=== PATIENT | male | born 1955 | race Caucasian/White ===

== ENCOUNTER → 2021-03-21 | Outpatient (CLI) | payer OTHER | LOC: M.RAD 07:49 → M.WC 07:49 | PROVIDERS: ATTEND Surgery | DX: E11.621 Type 2 diabetes mellitus with foot ulcer (principal); L97.523 Non-pressure chronic ulcer of other part of left foot with necrosis of muscle; E11.40 Type 2 diabetes mellitus with diabetic neuropathy, unspecified; I10 Essential (primary) hypertension; F17.200 Nicotine dependence, unspecified, uncomplicated; Z71.6 Tobacco abuse counseling; Z79.82 Long term (current) use of aspirin; Z79.84 Long term (current) use of oral hypoglycemic drugs ==

== ENCOUNTER 2021-03-31 08:56 | Emergency (ER) | payer OTHER ==
[~2021-03-31] VITALS: Ht 180.3 cm; Wt 104.3 kg
[2021-03-31] MEDS ORDERED: METFORMIN HCL500 M3 PO (09:15)
[2021-03-31] MEDS ORDERED: LISINOPRIL10 MG PO (09:15)
[2021-03-31] MEDS ORDERED: NEURONTIN100 MG PO (09:16)
[2021-03-31] MEDS ORDERED: ASA81BEC PO (09:16)
[2021-03-31] MEDS ORDERED: PLAVIX 75 MG TA75 MG PO (09:16)
[2021-03-31] MEDS ORDERED: LIPITOR20 MG PO (09:16)
[2021-03-31 09:59] LABS: HEMATOCRIT 40.3 % (42.0-52.0); HEMOGLOBIN 13.5 gm/dL (14.0-18.0); MCH 29.9 pg (26.0-34.0); MCHC 33.5 g/dL (28.0-37.0); MCV 89.1 fL (80.0-100.0); MPV 8.4 fl. (7.2-11.1); NUCLEATED RBCS 0 /100WBC; PLATELET COUNT* 259 thou/uL (150-400); RBC 4.52 mil/uL (4.50-6.00); RDW-CV 12.6 % (10.5-14.5); WBC 11.7 thou/uL (4.0-11.0)
[2021-03-31 10:35] LABS: CALCIUM 8.8 mg/dL (8.5-10.1); CREATININE 1.6 mg/dL (0.6-1.3); POTASSIUM 4.4 mmol/L (3.5-5.1)
[2021-03-31 10:40] LABS: ALBUMIN 2.4 g/dL (3.4-5.0); TOTAL BILIRUBIN 0.9 mg/dL (<0.1-1.0)
[2021-03-31 11:09] LABS: ABSOLUTE LYMPHOCYTES 0.4 thou/uL (0.8-5.3); ABSOLUTE MONOCYTES 0.2 thou/uL (0.0-1.2); ABSOLUTE NEUTROPHILS 11.1 thou/uL (1.6-8.1); METAMYELOCYTES 1 %; PLATELET ESTIMATE ADEQUATE
[2021-03-31 14:30] VITALS: BP 108/63
--- NOTE | 2021-04-01 13:14 | EKG ---
[place] [address] ELECTROCARDIOGRAM REPORT Name: HENRIK CHANG Room: [facility]#: [id number] Admission: 03/31/21 Attend Phys: Discharge: 03/31/21 Date of : 59 Date of Service: 03/31/21 0949 Report #: [id number] THIS REPORT FOR: //name// [facility] ED Test Date: 2021-03-31 Test Time: 09:49:08 Pat Name: HENRIK CHANG Department: Room: Gender: Hospice Physician: : [id number] Requested By: Noe Lawler Order Number: [id number] MD: Nicola Broussard Measurements Intervals [place] Rate: 114 P: 61 CT: 134 QRS: 75 QRSD: 149 T: 22 QT: 332 QTc: 458 Interpretive Statements Sinus tachycardia Probable left atrial enlargement Right bundle branch block No previous ECG available for comparison Electronically Signed On 04-01-2021 13:13:58 [employer] by Nicola Broussard [email or web address] <ELECTRONICALLY SIGNED> By: Nicola Broussard MD, [facility] 04/01/21 1313 0949 Nicola Broussard MD, [facility] /EPI
== END 2021-03-31 14:30 | disposition short-term general hospital (02) ==
LOC: M.ERS 08:56
PROVIDERS: Emergency Medicine Emergency Medical Services
DX: M72.6 Necrotizing fasciitis (principal); Z20.822 Contact with and (suspected) exposure to COVID-19; E11.9 Type 2 diabetes mellitus without complications; F17.210 Nicotine dependence, cigarettes, uncomplicated; Z79.899 Other long term (current) drug therapy; Z79.82 Long term (current) use of aspirin